=== PATIENT | male | born 1965 | race African-American/Black ===

== ENCOUNTER 2020-10-16 10:41 | Emergency (ER) | payer MEDICAID ==
[~2020-10-16] VITALS: Ht 167.6 cm; Wt 72.5 kg
[~2020-10-16 10:41] MED LIST: CARI350T28 PO; HYDR-519 PO
[2020-10-16 11:38] VITALS: BP 130/78
== END 2020-10-16 11:38 | disposition home or self-care (01) ==
LOC: ER 10:41
DX: U07.1 COVID-19 (principal); R03.0 Elevated blood-pressure reading, without diagnosis of hypertension; F17.210 Nicotine dependence, cigarettes, uncomplicated; Z71.6 Tobacco abuse counseling
CPT/HCPCS: 71045; 87635; 93005; 99285